=== PATIENT | male | born 1970 | race Native Hawaiian/Other Pacific Islander ===

== ENCOUNTER 2023-01-11 13:09 | Outpatient (CLI) | payer SELFPAY | END 2023-01-11 13:10 | disposition home or self-care (01) | LOC: NFLDUCREF 13:09 | PROVIDERS: Visit Provider Student in an Organized Health Care Education/Training Program | DX: M79.671 Pain in right foot (principal); M10.9 Gout, unspecified | CPT/HCPCS: 80053; 84153; 84550 ==